=== PATIENT | male | born 1945 | race Caucasian/White ===

== ENCOUNTER → 2018-11-13 | Day surgery (SDC) | payer MEDICARE, BC ==
[~2018-11-13] MED LIST: CEFTRIAXONE SOD 1 GM/NS 50 ML 50 ML IV ONE; DEXAMETHASONE SOD PHOS INJ 4 MG/ML VIAL ONE; FENTANYL CITRATE/PF 100MCG/2 ML INJ ONE; FLOMAX0.4 MG PO; GENTAMICIN 80MG/NS 100 ML 200 ML IV ONE; LIDOCAINE HCL 2% LOCAL INJ 5 ML SDV VIAL INJ ONE; LISINOPRIL10 MG PO; MIDAZOLAM HCL 2 MG/2 ML VIAL ONE; ONDANSETRON HCL INJ 2MG/ML 2ML 2 MG/ML VIAL ONE; PANTOPRAZOLE SO40 MG PO; PROPOFOL IV EMULSION 10 MG/ML 20 ML VIAL ONE; SEVOFLURANE INHAL SOLN 250 ML PEN BTL ONE; SIMVASTATIN40 MG PO
--- OUTSIDE RECORDS SUMMARY | 2018-11-13 09:35 | XMS REPORT | Clinical Summary ---
Author Author [facility] Organization [facility] Address Unknown Phone Unavailable Care Team Providers Care Industrial Truck Operator Name Role Phone CallGarry salazar MD PCP Allergies Not on File Medications Not on file Active Problems Not on file Encounters Care Team Description Date Type Specialty Samir Lucero MD Enlarged prostate with urinary obstruction 11/05/2018 Hospital Radiology Encounter Samir Lucero MD Enlarged prostate with urinary obstruction (Primary Dx) 10/03/2018 Transcribe Access Orders after 11/12/2017 Social History Date Tobacco Use Types Packs/Day Years Used Never Assessed Sex Assigned at Date Recorded Not on file Industry Job Start Date Occupation Not on file Not on file Not on file Travel End Travel History Travel Start No recent travel history available. 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 TECHNIQUE: Transrectal Harris scale and color Doppler exam of the prostate were performed. FINDINGS: Prostate: Prostate gland measures 5.3 x 3.5 x 5 cm, with a volume of 48.63 mL (normal=or < 30 mL). The gland echotexture is heterogeneous. There is a cyst measuring 0.5 x 0.5 x 0.4 cm in the right prostate related to BPH. There is a 3 mm benign calcification in the gland. Seminal vesicles: Symmetric in appearance IMPRESSION: Prostate is mildly enlarged. I personally reviewed the images and the resident's findings and agree with the final report. [facility]-[id number] Procedure Note Hm Interface, Radiology Results Incoming - 11/06/2018 11:24 AM PHOTOGRAPHER [employer] EXAM: US PROSTATE CLINICAL DATA: N40.1 Benign prostatic hyperplasia with lower urinary tract symptoms, N13.8 Other obstructive and reflux uropathy, N40.1 COMPARISON: None. TECHNIQUE: Transrectal Harris scale and color Doppler exam of the prostate were performed. FINDINGS: Prostate: Prostate gland measures 5.3 x 3.5 x 5 cm, with a volume of 48.63 mL (normal=or < 30 mL). The gland echotexture is heterogeneous. There is a cyst measuring 0.5 x 0.5 x 0.4 cm in the right prostate related to BPH. There is a 3 mm benign calcification in the gland. Seminal vesicles: Symmetric in appearance IMPRESSION: Prostate is mildly enlarged. I personally reviewed the images and the resident's findings and agree with the final report. [facility]-[id number] Performing Organization Address City/State/Zipcode Phone Number [facility] [address] [place] [address] after 11/12/2017 Insurance Payer Benefit Subscriber ID Type Phone Address Plan / Group MEDICARE MEDICARE xxxxxxxxxxx Medicare [place], [place] PART A AND B BCBS BCBS xxxxxxxxxxxx PPO CHOICE PPO/YOVANI OLMEDO PPO Advance Directives Patient has advance care planning documents on file. For more information, [facility] contact: Clive Burden [address] [place] [address]
--- NOTE | 2018-11-13 13:42 | Operative Report ---
DATE OF PROCEDURE: November 13, 2018 PREOPERATIVE DIAGNOSES 1. BPH. 2. Rule out carcinoma of the prostate. 3. Abnormal prostate-specific antigen. POSTOPERATIVE DIAGNOSES 1. BPH. 2. Rule out carcinoma of the prostate. 3. Abnormal prostate-specific antigen. OPERATIONS 1. Prostate needle biopsy. 2. Prostate ultrasound. 3. Cystourethroscopy. PRICE ACCURACY SUPERVISOR: Dr. Newsome. ANESTHETIC: General. Mr. Resendez is a 73-year-old male who presented with lower urinary tract obstructive symptoms, and was noted to have an elevated PSA. His AUA score was 50. Rectal exam showed an enlarged prostate gland, about 40 g, smooth, firm, and benign. His PSA was abnormal. This patient was placed on the table in the lithotomy position, and transrectal ultrasound of the prostate was performed. The prostate measured 4.34 cm x 3.24 x 4.06 with a total volume of 29.86 mL. There were several calcifications with post calcification shadowing. There was a hypoechoic area on the left base measuring 13 x 11 cm. Transrectal ultrasound-guided needle biopsies were obtained from the hypoechoic area, and also for the abnormal prostate to map it for any multifocal carcinoma. This patient was then placed on the table, and was prepped and draped in a sterile manner. A #23-[place] cystoscope was used and cystoscopy was performed. It was noted that the urethra was normal. The prostatic urethra was about 3 to 3.5 cm long, bilobar and occlusive. Cystoscopy was then performed using both right angle and the 4-0 oblique lens. It was noted that the bladder mucosa was normal with no evidence of gross tumor, pathology or any papillary lesions. Both urethral orifices were seen and were within normal position, configuration and efflux. The bladder wall was markedly trabeculated with cellules. The bladder was drained. Cystoscope removed. The patient taken to the recovery room in satisfactory condition. Plans for this patient is to be placed on Cipro 500 mg 1 twice a day for 1 week. Ultracet tablet 1 every 6 hours p.r.n. and was given 20. He is to return to the office in 1 week when at that time results of the biopsy will be back, and then will proceed with whatever indicated procedure. Job#: [id number] LEANN
[2018-11-13 14:40] VITALS: BP 132/74
== END | disposition home or self-care (01) ==
LOC: OR 09:33
PROVIDERS: ATTEND Specialist
DX: D07.5 Carcinoma in situ of prostate (principal); N40.1 Benign prostatic hyperplasia with lower urinary tract symptoms; N13.8 Other obstructive and reflux uropathy; N42.89 Other specified disorders of prostate; N32.89 Other specified disorders of bladder; F41.9 Anxiety disorder, unspecified; G47.33 Obstructive sleep apnea (adult) (pediatric); I10 Essential (primary) hypertension; K21.9 Gastro-esophageal reflux disease without esophagitis; I49.9 Cardiac arrhythmia, unspecified
CPT/HCPCS: 52000; 55700; 76872; 88305; 93005; J0696; J1100; J1580; J2001; J2250; J2405; J2704; 76998